=== PATIENT | female | born 1985 | race African-American/Black ===

== ENCOUNTER 2019-02-01 21:25 | Emergency (ER) | payer OTHER ==
[~2019-02-01] VITALS: Ht 167.6 cm; Wt 149.7 kg
[~2019-02-01 21:25] MED LIST: IRON325; NORCO 5-325 TA1 EACH PO; PRENATAL VITAM1 EAC6
[2019-02-01 21:28] VITALS: BP 166/94
== END 2019-02-01 22:14 | disposition home or self-care (01) ==
LOC: ER 21:25
DX: K02.9 Dental caries, unspecified (principal); F17.210 Nicotine dependence, cigarettes, uncomplicated